=== PATIENT | male | born 1935 | race Caucasian/White ===

== ENCOUNTER 2017-08-11 17:10 | Inpatient (IN) | payer OTHER ==
[~2017-08-11] VITALS: Ht 167.6 cm; Wt 80.5 kg
[2017-08-11 18:01] LABS: HEMATOCRIT 29.4 % (38.0-50.0); HEMOGLOBIN 10.4 G/DL (12.5-16.6); MCH 33.1 PG (29.0-34.0); MCHC 35.4 G/DL (30.0-36.0); MCV 93.6 FL (86-99); PLATELET COUNT 123 K/uL (156-360); RBC DIS.WIDTH-CV 14.4 % (11.8-14.6); RBC DIS.WIDTH-SD 49.5 % (39-53); RED BLOOD COUNT 3.14 M/uL (4.00-5.50); WHITE BLOOD COUNT 6.3 K/uL (4.1-10.2)
[2017-08-11 18:12] LABS: CHLORIDE 102 mEq/L (99-109); POTASSIUM 3.3 mEq/L (3.7-5.4); SODIUM 138 mEq/L (136-147)
[2017-08-11 18:13] LABS: GLUCOSE 110 mg/dL (70-99)
[2017-08-11 18:17] LABS: CREATININE 3.6 mg/dL (0.6-1.3); GFR ESTIMATE (CALCULATED) 17 mL/min/ (58.99-99999)
[2017-08-11 18:18] LABS: UREA NITROGEN (BUN) 55 mg/dL (9-23)
[2017-08-11 18:26] LABS: TROP-I INTERPRETATION NEGATIVE; TROPONIN-I 0.03 ng/mL (0.0-0.30)
[2017-08-11] MEDS ORDERED: MI-ACID80 MG PO (19:29)
[2017-08-11] MEDS ORDERED: FLONASE16 G1 BOTH NARES (19:29)
[2017-08-11] MEDS ORDERED: COUMADIN3 MG PO ×2 (19:30)
[2017-08-11] MEDS ORDERED: PROVENTIL,2.5 MG/3 M IH (19:32)
[2017-08-11] MEDS ORDERED: SUPER CALCIUM600 MG PO (19:32)
[2017-08-11] MEDS ORDERED: BUMEX1 MG PO ×2 (19:33→19:34)
[2017-08-11] MEDS ORDERED: VENTOLIN HFA18 GM IH (19:33)
[2017-08-11] MEDS ORDERED: PROSCAR5 MG PO (19:33)
[2017-08-11] MEDS ORDERED: FOLIC ACID1 MG PO (19:34)
[2017-08-11] MEDS ORDERED: FEOSOL325 MG PO (19:34)
[2017-08-11] MEDS ORDERED: ZYRTEC10 M3 PO (19:34)
[2017-08-11] MEDS ORDERED: COREG25 M1 PO (19:34)
[2017-08-11] MEDS ORDERED: PROTONIX40 MG PO (19:35)
[2017-08-11] MEDS ORDERED: FLOMAX0.4 MG PO (19:35)
[2017-08-11] MEDS ORDERED: TYLENOL EXTRA500 MG PO (19:36)
[2017-08-11] MEDS ORDERED: BENGAY GREASELE57 GM TP (19:36)
[2017-08-11] MEDS ORDERED: ARTIFICIAL TEAR1510 BOTH EYES (19:37)
[2017-08-11 20:22] LABS: INTER. NORMALIZED RATIO 3.9
[2017-08-11 20:24] LABS: PTT 47.3 SEC (25-37)
[2017-08-11 22:41] LABS: APPEARANCE CLEAR ((CLEAR)); BILIRUBIN NEGATIVE; BLOOD NEGATIVE; COLOR YELLOW ((YELLOW)); GLUCOSE (STRIP) NEGATIVE; KETONES NEGATIVE; LEUKOCYTES NEGATIVE; NITRITE NEGATIVE; PROTEIN (STRIP) NEGATIVE; SPECIFIC GRAVITY 1.011 (1.000-1.030); UCUL ADDED? NO; UROBILINOGEN 0.2 MG/DL (0.2-1.0)
[2017-08-11 22:45] VITALS: BP 142/71
[2017-08-11 23:12] LABS: UR CREATININE CONCENTRATION 80.8 MG/DL
[2017-08-11 23:18] LABS: CREATININE > 25.0 MG/DL (0.6-1.3)
[2017-08-12 01:19] LABS: CHLORIDE 103 mEq/L (99-109); POTASSIUM 3.1 mEq/L (3.7-5.4); SODIUM 138 mEq/L (136-147)
[2017-08-12 01:21] LABS: GLUCOSE 117 mg/dL (70-99)
[2017-08-12 01:25] LABS: GFR ESTIMATE (CALCULATED) 18 mL/min/ (58.99-99999)
[2017-08-12 01:26] LABS: CREATININE 3.5 mg/dL (0.6-1.3); UREA NITROGEN (BUN) 55 mg/dL (9-23)
[2017-08-12 03:55] VITALS: BP 130/81
[2017-08-12 06:00] LABS: HEMATOCRIT 28.3 % (38.0-50.0); HEMOGLOBIN 9.6 G/DL (12.5-16.6); MCH 32.1 PG (29.0-34.0); MCHC 33.9 G/DL (30.0-36.0); MCV 94.6 FL (86-99); PLATELET COUNT 115 K/uL (156-360); RBC DIS.WIDTH-CV 14.5 % (11.8-14.6); RBC DIS.WIDTH-SD 50.3 % (39-53); RED BLOOD COUNT 2.99 M/uL (4.00-5.50); WHITE BLOOD COUNT 4.6 K/uL (4.1-10.2)
[2017-08-12 06:25] LABS: CHLORIDE 103 MEQ/L (99-109); CREATININE 3.5 MG/DL (0.6-1.3); GFR ESTIMATE (CALCULATED) 18 mL/min/ (58.99-99999); GLUCOSE 90 mg/dL (70-99); MAGNESIUM 1.6 mg/dl (1.3-2.7); PHOSPHORUS 3.4 mg/dL (2.5-4.9); POTASSIUM 2.9 MEQ/L (3.7-5.4); SODIUM 139 MEQ/L (136-147); UREA NITROGEN (BUN) 56 mg/dL (9-23)
[2017-08-12 08:35] LABS: INTACT PARATHYROID HORMONE 112 pg/mL (10-69)
[2017-08-12 08:59] VITALS: BP 132/65
[2017-08-12 12:14] LABS: CREATININE 3.3 MG/DL (0.6-1.3)
[2017-08-12 12:46] VITALS: BP 138/71
[2017-08-12 15:37] LABS: INTER. NORMALIZED RATIO 4.2
[2017-08-12 16:48] VITALS: BP 140/92
[2017-08-12 19:12] VITALS: BP 138/76
[2017-08-13 00:50] VITALS: BP 128/74
[2017-08-13 03:29] VITALS: BP 121/76
[2017-08-13 06:22] LABS: HEMOGLOBIN 9.5 G/DL (12.5-16.6); MCH 32.1 PG (29.0-34.0); MCHC 33.9 G/DL (30.0-36.0); MCV 94.6 FL (86-99); PLATELET COUNT 112 K/uL (156-360); RBC DIS.WIDTH-CV 14.6 % (11.8-14.6); RBC DIS.WIDTH-SD 50.5 % (39-53); RED BLOOD COUNT 2.96 M/uL (4.00-5.50); WHITE BLOOD COUNT 4.6 K/uL (4.1-10.2)
[2017-08-13 06:30] LABS: INTER. NORMALIZED RATIO 3.9
[2017-08-13 06:50] LABS: CHLORIDE 106 MEQ/L (99-109); CREATININE 3.4 MG/DL (0.6-1.3); GFR ESTIMATE (CALCULATED) 18 mL/min/ (58.99-99999); GLUCOSE 124 mg/dL (70-99); MAGNESIUM 1.7 mg/dl (1.3-2.7); POTASSIUM 3.4 MEQ/L (3.7-5.4); SODIUM 139 MEQ/L (136-147); UREA NITROGEN (BUN) 53 mg/dL (9-23)
[2017-08-13 07:43] VITALS: BP 137/67
[2017-08-13 11:47] VITALS: BP 146/70
[2017-08-13 15:50] VITALS: BP 139/78
[2017-08-13 19:48] LABS: UR CREATININE CONCENTRATION 61.2 MG/DL
[2017-08-13 20:21] VITALS: BP 138/66
[2017-08-14 00:38] VITALS: BP 161/83
[2017-08-14 04:47] VITALS: BP 140/78
[2017-08-14 05:43] LABS: BASOPHIL COUNT 0.1 K/uL (0-0.1); EOSINOPHIL (%) 3.9 % (0-5); EOSINOPHIL COUNT 0.2 K/uL (0-0.3); HEMATOCRIT 29.1 % (38.0-50.0); HEMOGLOBIN 9.9 G/DL (12.5-16.6); IMMATURE GRANULOCYTE (%) 0.4 % (0.0-0.7); LYMPHOCYTE COUNT 0.7 K/uL (1.0-2.8); MCH 32.2 PG (29.0-34.0); MCV 94.8 FL (86-99); MONOCYTE (%) 13.2 % (3-12); MONOCYTE COUNT 0.7 K/uL (0-0.8); NEUTROPHIL (%) 67.5 % (45-76); NEUTROPHIL COUNT 3.3 K/uL (1.8-6.4); PLATELET COUNT 118 K/uL (156-360); RBC DIS.WIDTH-CV 14.5 % (11.8-14.6); RBC DIS.WIDTH-SD 49.8 % (39-53); RED BLOOD COUNT 3.07 M/uL (4.00-5.50); WHITE BLOOD COUNT 4.9 K/uL (4.1-10.2)
[2017-08-14 06:08] LABS: CHLORIDE 104 MEQ/L (99-109); CREATININE 3.2 MG/DL (0.6-1.3); GFR ESTIMATE (CALCULATED) 20 mL/min/ (58.99-99999); GLUCOSE 107 mg/dL (70-99); POTASSIUM 3.5 MEQ/L (3.7-5.4); SODIUM 138 MEQ/L (136-147); UREA NITROGEN (BUN) 51 mg/dL (9-23)
[2017-08-14 07:49] VITALS: BP 165/74
[2017-08-14 12:09] VITALS: BP 133/80
[2017-08-14 17:11] VITALS: BP 145/83
[2017-08-14 19:44] VITALS: BP 127/63
[2017-08-15 00:11] VITALS: BP 156/86
[2017-08-15 04:28] VITALS: BP 157/76
[2017-08-15 06:00] LABS: INTER. NORMALIZED RATIO 2.6
[2017-08-15 06:01] LABS: BASOPHIL (%) 0.7 % (0-1); EOSINOPHIL (%) 2.1 % (0-5); EOSINOPHIL COUNT 0.1 K/uL (0-0.3); HEMATOCRIT 28.3 % (38.0-50.0); HEMOGLOBIN 9.8 G/DL (12.5-16.6); IMMATURE GRANULOCYTE (%) 0.3 % (0.0-0.7); LYMPHOCYTE (%) 10.5 % (15-42); LYMPHOCYTE COUNT 0.6 K/uL (1.0-2.8); MCH 32.7 PG (29.0-34.0); MCHC 34.6 G/DL (30.0-36.0); MCV 94.3 FL (86-99); MONOCYTE (%) 14.5 % (3-12); MONOCYTE COUNT 0.9 K/uL (0-0.8); NEUTROPHIL (%) 71.9 % (45-76); NEUTROPHIL COUNT 4.4 K/uL (1.8-6.4); PLATELET COUNT 120 K/uL (156-360); RBC DIS.WIDTH-CV 14.6 % (11.8-14.6); RBC DIS.WIDTH-SD 50.6 % (39-53); WHITE BLOOD COUNT 6.1 K/uL (4.1-10.2)
[2017-08-15 06:34] LABS: CHLORIDE 105 MEQ/L (99-109); CREATININE 3.3 MG/DL (0.6-1.3); GFR ESTIMATE (CALCULATED) 19 mL/min/ (58.99-99999); GLUCOSE 109 mg/dL (70-99); POTASSIUM 3.7 MEQ/L (3.7-5.4); SODIUM 140 MEQ/L (136-147); UREA NITROGEN (BUN) 51 mg/dL (9-23)
[2017-08-15 07:55] VITALS: BP 156/73
[2017-08-15 13:55] VITALS: BP 132/80
[2017-08-15 15:43] VITALS: BP 128/82
[2017-08-15 20:47] VITALS: BP 120/75
[2017-08-16] VITALS (9 sets, daily range): BP systolic 116–169; BP diastolic 7–90
[2017-08-16 06:09] LABS: BASOPHIL (%) 0.5 % (0-1); EOSINOPHIL (%) 3.2 % (0-5); EOSINOPHIL COUNT 0.2 K/uL (0-0.3); HEMATOCRIT 30.1 % (38.0-50.0); HEMOGLOBIN 10.2 G/DL (12.5-16.6); IMMATURE GRANULOCYTE (%) 0.5 % (0.0-0.7); LYMPHOCYTE (%) 11.2 % (15-42); LYMPHOCYTE COUNT 0.7 K/uL (1.0-2.8); MCH 31.9 PG (29.0-34.0); MCHC 33.9 G/DL (30.0-36.0); MCV 94.1 FL (86-99); MONOCYTE (%) 13.6 % (3-12); MONOCYTE COUNT 0.9 K/uL (0-0.8); NEUTROPHIL COUNT 4.5 K/uL (1.8-6.4); PLATELET COUNT 126 K/uL (156-360); RBC DIS.WIDTH-CV 14.2 % (11.8-14.6); RBC DIS.WIDTH-SD 49.6 % (39-53); WHITE BLOOD COUNT 6.3 K/uL (4.1-10.2)
[2017-08-16 06:18] LABS: INTER. NORMALIZED RATIO 2.6
[2017-08-16 06:32] LABS: CHLORIDE 105 MEQ/L (99-109); CREATININE 3.4 MG/DL (0.6-1.3); GFR ESTIMATE (CALCULATED) 18 mL/min/ (58.99-99999); GLUCOSE 100 mg/dL (70-99); MAGNESIUM 1.6 mg/dl (1.3-2.7); POTASSIUM 3.7 MEQ/L (3.7-5.4); SODIUM 140 MEQ/L (136-147); UREA NITROGEN (BUN) 58 mg/dL (9-23)
[2017-08-16 17:10] LABS: URIC ACID 12.3 mg/dL (3.1-9.2)
[2017-08-17 03:56] VITALS: BP 149/71
[2017-08-17 06:00] LABS: INTER. NORMALIZED RATIO 2.2
[2017-08-17 07:56] VITALS: BP 147/79
[2017-08-17 12:15] VITALS: BP 140/74
[2017-08-17 15:46] VITALS: BP 145/69
[2017-08-17 19:39] VITALS: BP 134/73
[2017-08-18] VITALS: BP 153/72
[2017-08-18 06:12] LABS: BASOPHIL (%) 0.8 % (0-1); EOSINOPHIL (%) 5.1 % (0-5); EOSINOPHIL COUNT 0.3 K/uL (0-0.3); HEMATOCRIT 28.7 % (38.0-50.0); HEMOGLOBIN 9.7 G/DL (12.5-16.6); IMMATURE GRANULOCYTE (%) 0.2 % (0.0-0.7); LYMPHOCYTE (%) 16.2 % (15-42); LYMPHOCYTE COUNT 0.8 K/uL (1.0-2.8); MCH 31.9 PG (29.0-34.0); MCHC 33.8 G/DL (30.0-36.0); MCV 94.4 FL (86-99); MONOCYTE (%) 14.9 % (3-12); MONOCYTE COUNT 0.8 K/uL (0-0.8); NEUTROPHIL (%) 62.8 % (45-76); NEUTROPHIL COUNT 3.2 K/uL (1.8-6.4); PLATELET COUNT 139 K/uL (156-360); RBC DIS.WIDTH-CV 14.3 % (11.8-14.6); RBC DIS.WIDTH-SD 48.8 % (39-53); RED BLOOD COUNT 3.04 M/uL (4.00-5.50); WHITE BLOOD COUNT 5.1 K/uL (4.1-10.2)
[2017-08-18 06:55] LABS: CHLORIDE 107 MEQ/L (99-109); CREATININE 3.5 MG/DL (0.6-1.3); GFR ESTIMATE (CALCULATED) 18 mL/min/ (58.99-99999); GLUCOSE 104 mg/dL (70-99); POTASSIUM 3.9 MEQ/L (3.7-5.4); SODIUM 147 MEQ/L (136-147); UREA NITROGEN (BUN) 61 mg/dL (9-23)
[2017-08-18 07:08] LABS: INTER. NORMALIZED RATIO 2.1
[2017-08-18 08:00] VITALS: BP 144/71
[2017-08-18 12:02] VITALS: BP 134/71
[2017-08-18 15:53] VITALS: BP 129/78
[2017-08-18 19:45] VITALS: BP 132/68
[2017-08-19] VITALS: BP 131/71
[2017-08-19 03:59] VITALS: BP 134/81
[2017-08-19 05:18] LABS: INTER. NORMALIZED RATIO 2.2
[2017-08-19 05:19] LABS: BASOPHIL (%) 1.1 % (0-1); BASOPHIL COUNT 0.1 K/uL (0-0.1); EOSINOPHIL (%) 6.4 % (0-5); EOSINOPHIL COUNT 0.3 K/uL (0-0.3); HEMATOCRIT 28.9 % (38.0-50.0); HEMOGLOBIN 9.9 G/DL (12.5-16.6); IMMATURE GRANULOCYTE (%) 0.2 % (0.0-0.7); LYMPHOCYTE (%) 18.6 % (15-42); LYMPHOCYTE COUNT 0.8 K/uL (1.0-2.8); MCH 32.5 PG (29.0-34.0); MCHC 34.3 G/DL (30.0-36.0); MCV 94.8 FL (86-99); MONOCYTE (%) 13.9 % (3-12); MONOCYTE COUNT 0.6 K/uL (0-0.8); NEUTROPHIL (%) 59.8 % (45-76); NEUTROPHIL COUNT 2.7 K/uL (1.8-6.4); PLATELET COUNT 136 K/uL (156-360); RBC DIS.WIDTH-CV 14.4 % (11.8-14.6); RBC DIS.WIDTH-SD 49.9 % (39-53); RED BLOOD COUNT 3.05 M/uL (4.00-5.50); WHITE BLOOD COUNT 4.5 K/uL (4.1-10.2)
[2017-08-19 06:21] LABS: CHLORIDE 105 MEQ/L (99-109); CREATININE 3.6 MG/DL (0.6-1.3); GFR ESTIMATE (CALCULATED) 17 mL/min/ (58.99-99999); GLUCOSE 88 mg/dL (70-99); POTASSIUM 4.1 MEQ/L (3.7-5.4); SODIUM 146 MEQ/L (136-147); UREA NITROGEN (BUN) 60 mg/dL (9-23)
[2017-08-19 07:17] VITALS: BP 165/76
[2017-08-19 11:41] VITALS: BP 138/63
[2017-08-19 16:25] VITALS: BP 134/74
[2017-08-19 20:09] VITALS: BP 136/66
[2017-08-20 00:04] VITALS: BP 155/73
[2017-08-20 03:31] VITALS: BP 165/75
[2017-08-20 07:16] LABS: INTER. NORMALIZED RATIO 2.4
[2017-08-20 08:12] VITALS: BP 148/76
[2017-08-20 10:57] VITALS: BP 132/67
[2017-08-20] MEDS ORDERED: SPIRONOLACTONE25 MG PO (11:48)
[2017-08-20] MEDS ORDERED: K-DUR20 MEQ PO (11:49)
[2017-08-20] MEDS ORDERED: BUMETANIDE1 MG PO (11:50)
[2017-08-20] MEDS ORDERED: Salonpas 4% Patch TD (11:51)
[2017-08-20] MEDS ORDERED: Tums,OsCal PO (11:51)
[2017-08-20] MEDS ORDERED: Remove Lidoderm Patc TD (11:51)
== END 2017-08-20 14:14 | DRG 682 ==
LOC: EME 17:10 → EDOF 20:28 → 5SOUTH 20:28 → ENRESERV 20:31 → 5SOUTH 22:32
PROVIDERS: Hospitalist; Internal Medicine; Physician Assistant; Physician Assistant Medical
PROC: 5A09357 Assistance with Respiratory Ventilation, Less than 24 Consecutive Hours, Continuous Positive Airway Pressure (ICD-10-PCS; principal; 2017-08-16)
DX: N17.9 Acute kidney failure, unspecified (principal); I13.2 Hypertensive heart and chronic kidney disease with heart failure and with stage 5 chronic kidney disease, or end stage renal disease; I50.43 Acute on chronic combined systolic (congestive) and diastolic (congestive) heart failure; Z79.01 Long term (current) use of anticoagulants; Z95.1 Presence of aortocoronary bypass graft; I25.10 Atherosclerotic heart disease of native coronary artery without angina pectoris; I48.2 Chronic atrial fibrillation; I25.5 Ischemic cardiomyopathy; E87.6 Hypokalemia; D63.1 Anemia in chronic kidney disease; R79.1 Abnormal coagulation profile; N18.5 Chronic kidney disease, stage 5; J45.909 Unspecified asthma, uncomplicated; I27.20 Pulmonary hypertension, unspecified; I35.0 Nonrheumatic aortic (valve) stenosis; M79.671 Pain in right foot; H91.90 Unspecified hearing loss, unspecified ear; Z66 Do not resuscitate
CPT/HCPCS: 71045; 71046; 73630; 76770; 78582; 80048; 80048 91; 80069; 81003; 81050; 82272; 82330; 82575; 82948; 83735; 83880; 83970; 84300; 84484; 84550; 85025; 85027; 85610; 85651; 85730; 93005; 93306; 93970; 94640; 94640 76; 94660; 97530 GO; 97530 GP; 99202; 99281; 99285; A9540; A9541; A9567

== ENCOUNTER 2017-08-23 00:25 | Inpatient (IN) | payer OTHER ==
[~2017-08-23] VITALS: Ht 160 cm; Wt 89.1 kg
[~2017-08-23 00:25] MED LIST: ARTIFICIAL TEAR1510 BOTH EYES; BENGAY GREASELE57 GM TP; BUMETANIDE1 MG PO; BUMEX1 MG PO; COREG25 M1 PO; COUMADIN3 MG PO; FEOSOL325 MG PO; FLOMAX0.4 MG PO; FLONASE16 G1 BOTH NARES; FOLIC ACID1 MG PO; K-DUR20 MEQ PO; MI-ACID80 MG PO; PROSCAR5 MG PO; PROTONIX40 MG PO; PROVENTIL,2.5 MG/3 M IH; Remove Lidoderm Patc TD; SPIRONOLACTONE25 MG PO; SUPER CALCIUM600 MG PO; Salonpas 4% Patch TD; TYLENOL EXTRA500 MG PO; Tums,OsCal PO; VENTOLIN HFA18 GM IH; ZYRTEC10 M3 PO
[2017-08-23 01:48] LABS: BASOPHIL (%) 0.8 % (0-1); BASOPHIL COUNT 0.1 K/uL (0-0.1); EOSINOPHIL (%) 3.6 % (0-5); EOSINOPHIL COUNT 0.2 K/uL (0-0.3); IMMATURE GRANULOCYTE (%) 0.3 % (0.0-0.7); INTER. NORMALIZED RATIO 2.4; LYMPHOCYTE (%) 14.5 % (15-42); LYMPHOCYTE COUNT 0.9 K/uL (1.0-2.8); MCH 32.4 PG (29.0-34.0); MCHC 34.6 G/DL (30.0-36.0); MCV 93.8 FL (86-99); MONOCYTE (%) 9.9 % (3-12); MONOCYTE COUNT 0.6 K/uL (0-0.8); NEUTROPHIL (%) 70.9 % (45-76); NEUTROPHIL COUNT 4.5 K/uL (1.8-6.4); PLATELET COUNT 158 K/uL (156-360); RBC DIS.WIDTH-CV 13.9 % (11.8-14.6); RBC DIS.WIDTH-SD 47.8 % (39-53); WHITE BLOOD COUNT 6.4 K/uL (4.1-10.2)
[2017-08-23 01:50] LABS: HEMOGLOBIN 12.1 G/DL (12.5-16.6); RED BLOOD COUNT 3.73 M/uL (4.00-5.50)
[2017-08-23 01:51] LABS: PTT 41.1 SEC (25-37)
[2017-08-23 01:55] LABS: ALBUMIN 3.5 g/dL (3.2-4.8); CHLORIDE 102 mEq/L (99-109); POTASSIUM 4.8 mEq/L (3.7-5.4); SODIUM 140 mEq/L (136-147)
[2017-08-23 01:56] LABS: MAGNESIUM 1.9 mg/dL (1.3-2.7)
[2017-08-23 01:58] LABS: GLUCOSE 121 mg/dL (70-99); TOTAL PROTEIN 6.8 g/dL (6.4-8.3)
[2017-08-23 02:00] LABS: TOTAL BILIRUBIN 1.2 mg/dL (0.0-1.0)
[2017-08-23 02:01] LABS: ALKALINE PHOSPHATASE 181 IU/L (3-129)
[2017-08-23 02:02] LABS: CREATININE 4.2 mg/dL (0.6-1.3); GFR ESTIMATE (CALCULATED) 14 mL/min/ (58.99-99999)
[2017-08-23 02:03] LABS: AST (GOT) 28 IU/L (2-34); UREA NITROGEN (BUN) 69 mg/dL (9-23)
[2017-08-23 02:05] LABS: ALT (GPT) 14 IU/L (3-49); LIPASE 57 U/L (1.0-51.0)
[2017-08-23 02:07] LABS: TROP-I INTERPRETATION NEGATIVE; TROPONIN-I 0.02 ng/mL (0.0-0.30)
[2017-08-23 06:36] VITALS: BP 166/89
[2017-08-23 09:15] LABS: HEMATOCRIT 32.3 % (38.0-50.0); HEMOGLOBIN 10.9 G/DL (12.5-16.6); MCHC 33.7 G/DL (30.0-36.0); MCV 94.7 FL (86-99); PLATELET COUNT 170 K/uL (156-360); RBC DIS.WIDTH-CV 13.8 % (11.8-14.6); RBC DIS.WIDTH-SD 47.9 % (39-53); RED BLOOD COUNT 3.41 M/uL (4.00-5.50); WHITE BLOOD COUNT 7.2 K/uL (4.1-10.2)
[2017-08-23 09:55] LABS: CHLORIDE 102 MEQ/L (99-109); CREATININE 3.9 MG/DL (0.6-1.3); GFR ESTIMATE (CALCULATED) 16 mL/min/ (58.99-99999); GLUCOSE 110 mg/dL (70-99); POTASSIUM 4.5 MEQ/L (3.7-5.4); SODIUM 143 MEQ/L (136-147); UREA NITROGEN (BUN) 69 mg/dL (9-23)
[2017-08-23 11:17] LABS: INTER. NORMALIZED RATIO 2.6
[2017-08-23 14:49] LABS: HDL CHOLESTEROL 32 MG/DL (Desirable>=40); LDL CHOLESTEROL 57 mg/dL (Desirable<100); NON-HDL CHOLESTEROL 70 mg/dL (Desirable<160); TOTAL CHOLESTEROL 102 mg/dL (Desirable<200); TRIGLYCERIDES 66 MG/DL (Normal: <150)
[2017-08-23 14:55] LABS: TROP-I INTERPRETATION NEGATIVE; TROPONIN-I 0.02 ng/mL (0.0-0.30)
[2017-08-23 15:04] VITALS: BP 145/67
[2017-08-23 23:33] VITALS: BP 139/69
[2017-08-24 06:21] LABS: BASOPHIL COUNT 0.1 K/uL (0-0.1); EOSINOPHIL (%) 2.4 % (0-5); EOSINOPHIL COUNT 0.2 K/uL (0-0.3); HEMATOCRIT 34.6 % (38.0-50.0); HEMOGLOBIN 11.4 G/DL (12.5-16.6); IMMATURE GRANULOCYTE (%) 0.4 % (0.0-0.7); LYMPHOCYTE (%) 12.3 % (15-42); LYMPHOCYTE COUNT 0.9 K/uL (1.0-2.8); MCH 31.9 PG (29.0-34.0); MCHC 32.9 G/DL (30.0-36.0); MCV 96.9 FL (86-99); MONOCYTE (%) 10.9 % (3-12); MONOCYTE COUNT 0.8 K/uL (0-0.8); NEUTROPHIL COUNT 5.1 K/uL (1.8-6.4); PLATELET COUNT 182 K/uL (156-360); RBC DIS.WIDTH-SD 49.7 % (39-53); RED BLOOD COUNT 3.57 M/uL (4.00-5.50)
[2017-08-24 06:23] LABS: INTER. NORMALIZED RATIO 2.5
[2017-08-24 06:45] LABS: CHLORIDE 105 MEQ/L (99-109); GFR ESTIMATE (CALCULATED) 15 mL/min/ (58.99-99999); GLUCOSE 79 mg/dL (70-99); POTASSIUM 4.9 MEQ/L (3.7-5.4); SODIUM 148 MEQ/L (136-147); UREA NITROGEN (BUN) 67 mg/dL (9-23)
[2017-08-24 07:35] VITALS: BP 156/89
[2017-08-24 11:59] LABS: APPEARANCE CLEAR ((CLEAR)); BILIRUBIN NEGATIVE; BLOOD SMALL; COLOR YELLOW ((YELLOW)); GLUCOSE (STRIP) NEGATIVE; KETONES NEGATIVE; LEUKOCYTES NEGATIVE; NITRITE NEGATIVE; PROTEIN (STRIP) 30; SPECIFIC GRAVITY 1.013 (1.000-1.030)
[2017-08-24] MEDS ORDERED: TUMS500 MG PO (12:15)
[2017-08-24] MEDS ORDERED: SALONPAS-HOT1 EACH TD (12:18)
[2017-08-24 12:20] LABS: BACTERIA NONE SEEN /HPF; EPITHELIAL CELLS NONE SEEN /HPF; MUCUS NONE SEEN /LPF; RED BLOOD CELLS 0-5 /HPF (0-5); UCUL ADDED? NO; WHITE BLOOD CELLS 0-5 /HPF (0-5)
[2017-08-24] MEDS ORDERED: SALONPAS GEL-P1 EAC1 TD (12:20)
[2017-08-24] MEDS ORDERED: PRILOSEC20 MG PO (12:24)
[2017-08-24] MEDS ORDERED: LIQUITEARS15 ML BOTH EYES (12:26)
[2017-08-24] MEDS ORDERED: MILK OF MAGN PO (12:29)
[2017-08-24] MEDS ORDERED: CHLORASEPTIC177 ML MM (12:29)
[2017-08-24] MEDS ORDERED: BISAC-EVAC10 MG PR (12:30)
[2017-08-24] MEDS ORDERED: FLEET ENEMA-AD118 ML PR (12:31)
[2017-08-24 12:34] LABS: HEMOGLOBIN A1c (GLYCOHEMOGLOB) 5.7 % (Below 5.7)
[2017-08-24 20:10] VITALS: BP 133/71
[2017-08-25 01:10] VITALS: BP 119/66
[2017-08-25 06:37] LABS: INTER. NORMALIZED RATIO 3.4
[2017-08-25 07:09] VITALS: BP 147/67
[2017-08-25 13:20] LABS: CHLORIDE 106 MEQ/L (99-109); CREATININE 4.1 MG/DL (0.6-1.3); GFR ESTIMATE (CALCULATED) 15 mL/min/ (58.99-99999); SODIUM 145 MEQ/L (136-147); UREA NITROGEN (BUN) 61 mg/dL (9-23)
[2017-08-25 13:36] LABS: GLUCOSE 145 mg/dL (70-99); POTASSIUM 3.9 MEQ/L (3.7-5.4)
[2017-08-25 15:07] VITALS: BP 137/60
[2017-08-25 21:19] VITALS: BP 126/63
[2017-08-25 23:54] VITALS: BP 125/63
[2017-08-26 05:55] LABS: INTER. NORMALIZED RATIO 3.9
[2017-08-26 07:59] VITALS: BP 119/58
[2017-08-26 16:24] VITALS: BP 128/64
[2017-08-27 05:59] LABS: CHLORIDE 103 MEQ/L (99-109); CREATININE 3.9 MG/DL (0.6-1.3); GFR ESTIMATE (CALCULATED) 16 mL/min/ (58.99-99999); POTASSIUM 4.1 MEQ/L (3.7-5.4); SODIUM 138 MEQ/L (136-147); UREA NITROGEN (BUN) 60 mg/dL (9-23)
[2017-08-27 06:02] LABS: GLUCOSE 102 mg/dL (70-99)
[2017-08-27 06:31] LABS: INTER. NORMALIZED RATIO 3.7
[2017-08-27 07:38] VITALS: BP 141/83
[2017-08-27] MEDS ORDERED: BUMETANIDE1 MG PO (11:34)
== END 2017-08-27 15:40 | DRG 683 ==
LOC: EME → EDBD 00:25 → 5SOUTH 03:53 → EDOF 03:53 → ENRESERV 03:55 → 3EAST 05:21 → ENRESERV 05:47 → 5SOUTH 05:54
PROVIDERS: Emergency Medicine; Hospitalist; Internal Medicine; Nurse Practitioner Family; Physician Assistant; Physician Assistant Medical; Student in an Organized Health Care Education/Training Program
DX: N17.9 Acute kidney failure, unspecified (principal); E86.0 Dehydration; E87.0 Hyperosmolality and hypernatremia; E16.2 Hypoglycemia, unspecified; F03.90 Unspecified dementia, unspecified severity, without behavioral disturbance, psychotic disturbance, mood disturbance, and anxiety; F05 Delirium due to known physiological condition; T40.605A Adverse effect of unspecified narcotics, initial encounter; I13.2 Hypertensive heart and chronic kidney disease with heart failure and with stage 5 chronic kidney disease, or end stage renal disease; I50.42 Chronic combined systolic (congestive) and diastolic (congestive) heart failure; N18.4 Chronic kidney disease, stage 4 (severe); D63.1 Anemia in chronic kidney disease; J45.909 Unspecified asthma, uncomplicated; I48.2 Chronic atrial fibrillation; N40.0 Benign prostatic hyperplasia without lower urinary tract symptoms; E78.5 Hyperlipidemia, unspecified; I25.10 Atherosclerotic heart disease of native coronary artery without angina pectoris; I25.5 Ischemic cardiomyopathy; I27.20 Pulmonary hypertension, unspecified; I35.0 Nonrheumatic aortic (valve) stenosis; G47.33 Obstructive sleep apnea (adult) (pediatric); W06.XXXA Fall from bed, initial encounter; S42.212A Unspecified displaced fracture of surgical neck of left humerus, initial encounter for closed fracture; Y92.122 Bedroom in nursing home as the place of occurrence of the external cause; Z66 Do not resuscitate; I25.2 Old myocardial infarction; Z79.01 Long term (current) use of anticoagulants; Z95.1 Presence of aortocoronary bypass graft; Z87.891 Personal history of nicotine dependence
CPT/HCPCS: 70450; 70551; 71045; 71046; 72125; 73030; 74018; 76770; 80048; 80048 91; 80053; 80061; 81003; 82948; 83036; 83605; 83690; 83735; 83880; 84484; 85025; 85027; 85610; 85730; 87040; 93005; 93880; 94799; 99202; 99281; 99285; G0378; J2060; J2270; J2405; J3010; J7030; J7040

== ENCOUNTER 2017-09-15 11:17 | Inpatient (IN) | payer OTHER ==
[~2017-09-15] VITALS: Ht 167.6 cm; Wt 86.8 kg
[~2017-09-15 11:17] MED LIST changes: +BISAC-EVAC10 MG PR; +CHLORASEPTIC177 ML MM; +FLEET ENEMA-AD118 ML PR; +LIQUITEARS15 ML BOTH EYES; +MILK OF MAGN PO; +PRILOSEC20 MG PO; +SALONPAS GEL-P1 EAC1 TD; +SALONPAS-HOT1 EACH TD; +TUMS500 MG PO
[2017-09-15 11:53] LABS: BASOPHIL (%) 0.8 % (0-1); EOSINOPHIL (%) 5.9 % (0-5); EOSINOPHIL COUNT 0.3 K/uL (0-0.3); HEMATOCRIT 27.6 % (38.0-50.0); HEMOGLOBIN 9.6 G/DL (12.5-16.6); LYMPHOCYTE (%) 19.1 % (15-42); LYMPHOCYTE COUNT 0.9 K/uL (1.0-2.8); MCH 32.4 PG (29.0-34.0); MCHC 34.8 G/DL (30.0-36.0); MCV 93.2 FL (86-99); MONOCYTE (%) 12.1 % (3-12); MONOCYTE COUNT 0.6 K/uL (0-0.8); NEUTROPHIL (%) 62.1 % (45-76); NEUTROPHIL COUNT 2.9 K/uL (1.8-6.4); RBC DIS.WIDTH-CV 15.2 % (11.8-14.6); RED BLOOD COUNT 2.96 M/uL (4.00-5.50); WHITE BLOOD COUNT 4.7 K/uL (4.1-10.2)
[2017-09-15 12:02] LABS: CHLORIDE 109 mEq/L (99-109); SODIUM 141 mEq/L (136-147)
[2017-09-15 12:05] LABS: GLUCOSE 116 mg/dL (70-99)
[2017-09-15 12:08] LABS: CREATININE 3.9 mg/dL (0.6-1.3); GFR ESTIMATE (CALCULATED) 16 mL/min/ (58.99-99999)
[2017-09-15 12:09] LABS: UREA NITROGEN (BUN) 71 mg/dL (9-23)
[2017-09-15 12:12] LABS: TROP-I INTERPRETATION NEGATIVE; TROPONIN-I 0.02 ng/mL (0.0-0.30)
[2017-09-15 12:39] LABS: PLAT.SUFFICIENCY DECREASED; PLATELET COUNT 123 K/uL (156-360)
[2017-09-15] MEDS ORDERED: TYLENOL EXTRA500 MG PO (13:04)
[2017-09-15] MEDS ORDERED: BUMEX2 MG PO (13:06)
[2017-09-15] MEDS ORDERED: COUMADIN3 MG PO (13:11)
[2017-09-15 13:21] LABS: INTER. NORMALIZED RATIO 1.9
[2017-09-15 13:45] LABS: DEVICE NC; O2 FLOW 3 L/MIN; SITE RR; pH 7.29 (7.35-7.45)
[2017-09-15 13:46] LABS: BASE EXCESS -5.5 mEq/L (-3 to +3); BICARBONATE 20.7 mEq/L (22-26); CARBOXY HGB 1.4 % (0-5); METHEMOGLOBIN 0.7 % (0-1.5); PCO2 43 mm Hg (35-45); PO2 134 mm Hg (80-100)
[2017-09-15 17:33] VITALS: BP 139/85
[2017-09-15 19:39] VITALS: BP 136/81
[2017-09-15 20:07] LABS: TYPE OF FLUID PLEURAL
[2017-09-15 21:06] LABS: BODY FLUID GLUCOSE 119 MG/DL; BODY FLUID LDH 78 IU/L; BODY FLUID PROTEIN < 3.0 G/DL
[2017-09-15 21:57] LABS: APPEARANCE CLEAR-YELLOW; BODY FLUID EOSINOPHILS 1 % (0-25); BODY FLUID RBC'S < 1000 /MM^3 (0-100); BODY FLUID WBC'S 158 /MM^3 (0-500); MONONUCLEAR WBC'S 96 %; POLYNUCLEAR WBC'S 3 % (0-25)
[2017-09-15 22:18] VITALS: BP 173/83
[2017-09-16 03:44] VITALS: BP 160/69
[2017-09-16 05:24] LABS: HEMATOCRIT 27.9 % (38.0-50.0); HEMOGLOBIN 9.4 G/DL (12.5-16.6); MCH 31.3 PG (29.0-34.0); MCHC 33.7 G/DL (30.0-36.0); PLATELET COUNT 118 K/uL (156-360); RBC DIS.WIDTH-CV 15.1 % (11.8-14.6); RBC DIS.WIDTH-SD 51.1 % (39-53); WHITE BLOOD COUNT 4.7 K/uL (4.1-10.2)
[2017-09-16 05:31] LABS: INTER. NORMALIZED RATIO 1.8
[2017-09-16 05:43] LABS: CHLORIDE 109 MEQ/L (99-109); CREATININE 3.7 MG/DL (0.6-1.3); GFR ESTIMATE (CALCULATED) 17 mL/min/ (58.99-99999); GLUCOSE 150 mg/dL (70-99); POTASSIUM 4.1 MEQ/L (3.7-5.4); SODIUM 140 MEQ/L (136-147); UREA NITROGEN (BUN) 71 mg/dL (9-23)
[2017-09-16 06:14] LABS: ABS NEUTROPHIL COUNT 4.6; ANISOCYTOSIS 3+; EOSINOPHIL ABS CT 0; LYMPHOCYTES 2.8 % (15.0-45.0); MACROCYTES 3+; NUCLEATED RBC'S 0.9; PLAT.SUFFICIENCY DECREASED; POIKILOCYTOSIS 2+; SEG.NEUTROPHILS 97.2 % (46.0-76.0)
[2017-09-16 07:42] VITALS: BP 124/69
[2017-09-16 08:47] LABS: BASE EXCESS -5.4 mEq/L (-3 to +3); BICARBONATE 18.6 mEq/L (22-26); COMMENTS - BLOOD GASES A+C+; DEVICE RA; PCO2 30 mm Hg (35-45); PO2 84 mm Hg (80-100); SITE RR
[2017-09-16 11:41] VITALS: BP 116/54
[2017-09-16 15:15] VITALS: BP 119/56
[2017-09-16 19:34] VITALS: BP 147/70
[2017-09-16 20:31] LABS: APPEARANCE CLEAR ((CLEAR)); BILIRUBIN NEGATIVE; BLOOD NEGATIVE; COLOR YELLOW ((YELLOW)); GLUCOSE (STRIP) NEGATIVE; KETONES NEGATIVE; LEUKOCYTES NEGATIVE; NITRITE NEGATIVE; PROTEIN (STRIP) NEGATIVE; SPECIFIC GRAVITY 1.013 (1.000-1.030); UCUL ADDED? NO; UROBILINOGEN 0.2 MG/DL (0.2-1.0)
[2017-09-16 22:52] VITALS: BP 136/64
[2017-09-17 03:25] VITALS: BP 159/74
[2017-09-17 06:18] LABS: BASOPHIL (%) 0.1 % (0-1); EOSINOPHIL (%) 0 % (0-5); HEMATOCRIT 25.5 % (38.0-50.0); HEMOGLOBIN 8.8 G/DL (12.5-16.6); IMMATURE GRANULOCYTE (%) 1.2 % (0.0-0.7); LYMPHOCYTE (%) 4.5 % (15-42); LYMPHOCYTE COUNT 0.5 K/uL (1.0-2.8); MCH 31.8 PG (29.0-34.0); MCHC 34.5 G/DL (30.0-36.0); MCV 92.1 FL (86-99); MONOCYTE (%) 0.9 % (3-12); MONOCYTE COUNT 0.1 K/uL (0-0.8); NEUTROPHIL (%) 93.3 % (45-76); NEUTROPHIL COUNT 9.4 K/uL (1.8-6.4); PLATELET COUNT 127 K/uL (156-360); RBC DIS.WIDTH-CV 15.2 % (11.8-14.6); RBC DIS.WIDTH-SD 49.8 % (39-53); RED BLOOD COUNT 2.77 M/uL (4.00-5.50); WHITE BLOOD COUNT 10.1 K/uL (4.1-10.2)
[2017-09-17 06:35] LABS: ALBUMIN 3.1 G/DL (3.2-4.8); ALKALINE PHOSPHATASE 110 IU/L (3-129); ALT (GPT) 10 IU/L (3-49); AST (GOT) 16 IU/L (2-34); CHLORIDE 105 MEQ/L (99-109); CREATININE 4.3 MG/DL (0.6-1.3); GFR ESTIMATE (CALCULATED) 14 mL/min/ (58.99-99999); GLUCOSE 131 mg/dL (70-99); POTASSIUM 4.2 MEQ/L (3.7-5.4); SODIUM 136 MEQ/L (136-147); TOTAL PROTEIN 5.8 G/DL (6.4-8.3); UREA NITROGEN (BUN) 75 mg/dL (9-23)
[2017-09-17 07:45] VITALS: BP 144/70
[2017-09-17 11:06] VITALS: BP 130/65
[2017-09-17 15:16] LABS: BODY FLUID PH 7.8 (())
[2017-09-17 15:24] VITALS: BP 145/65
[2017-09-17 19:00] VITALS: BP 147/79
[2017-09-18 00:53] VITALS: BP 138/74
[2017-09-18 04:38] VITALS: BP 155/87
[2017-09-18 05:46] LABS: BASOPHIL (%) 0 % (0-1); EOSINOPHIL (%) 0 % (0-5); HEMATOCRIT 27.7 % (38.0-50.0); HEMOGLOBIN 9.6 G/DL (12.5-16.6); IMMATURE GRANULOCYTE (%) 0.4 % (0.0-0.7); LYMPHOCYTE (%) 3.5 % (15-42); LYMPHOCYTE COUNT 0.3 K/uL (1.0-2.8); MCHC 34.7 G/DL (30.0-36.0); MCV 92.3 FL (86-99); MONOCYTE (%) 0.7 % (3-12); MONOCYTE COUNT 0.1 K/uL (0-0.8); NEUTROPHIL (%) 95.4 % (45-76); NEUTROPHIL COUNT 8.6 K/uL (1.8-6.4); PLATELET COUNT 126 K/uL (156-360); RBC DIS.WIDTH-CV 15.4 % (11.8-14.6); RBC DIS.WIDTH-SD 51.4 % (39-53)
[2017-09-18 05:48] LABS: INTER. NORMALIZED RATIO 1.9
[2017-09-18 06:08] LABS: ALBUMIN 3.3 G/DL (3.2-4.8); ALKALINE PHOSPHATASE 117 IU/L (3-129); ALT (GPT) 13 IU/L (3-49); AST (GOT) 19 IU/L (2-34); CHLORIDE 102 MEQ/L (99-109); CREATININE 4.3 MG/DL (0.6-1.3); GFR ESTIMATE (CALCULATED) 14 mL/min/ (58.99-99999); GLUCOSE 137 mg/dL (70-99); POTASSIUM 3.9 MEQ/L (3.7-5.4); SODIUM 133 MEQ/L (136-147); TOTAL PROTEIN 6.2 G/DL (6.4-8.3); UREA NITROGEN (BUN) 87 mg/dL (9-23)
[2017-09-18 07:33] VITALS: BP 140/72
[2017-09-18 11:27] VITALS: BP 135/85
[2017-09-18 15:08] VITALS: BP 131/61
[2017-09-18 19:50] VITALS: BP 160/78
[2017-09-19] VITALS (7 sets, daily range): BP systolic 145–163; BP diastolic 75–85
[2017-09-19 05:49] LABS: BASOPHIL (%) 0 % (0-1); EOSINOPHIL (%) 0 % (0-5); HEMATOCRIT 27.3 % (38.0-50.0); HEMOGLOBIN 9.5 G/DL (12.5-16.6); IMMATURE GRANULOCYTE (%) 0.4 % (0.0-0.7); LYMPHOCYTE (%) 3.7 % (15-42); LYMPHOCYTE COUNT 0.3 K/uL (1.0-2.8); MCH 31.9 PG (29.0-34.0); MCHC 34.8 G/DL (30.0-36.0); MCV 91.6 FL (86-99); MONOCYTE (%) 5.2 % (3-12); MONOCYTE COUNT 0.5 K/uL (0-0.8); NEUTROPHIL (%) 90.7 % (45-76); NEUTROPHIL COUNT 8.2 K/uL (1.8-6.4); PLATELET COUNT 116 K/uL (156-360); RBC DIS.WIDTH-CV 15.2 % (11.8-14.6); RBC DIS.WIDTH-SD 50.4 % (39-53); RED BLOOD COUNT 2.98 M/uL (4.00-5.50); WHITE BLOOD COUNT 9.1 K/uL (4.1-10.2)
[2017-09-19 06:05] LABS: CHLORIDE 104 MEQ/L (99-109); CREATININE 4.2 MG/DL (0.6-1.3); GFR ESTIMATE (CALCULATED) 14 mL/min/ (58.99-99999); GLUCOSE 128 mg/dL (70-99); POTASSIUM 3.9 MEQ/L (3.7-5.4); SODIUM 133 MEQ/L (136-147); UREA NITROGEN (BUN) 94 mg/dL (9-23)
[2017-09-19 11:11] LABS: MAGNESIUM 1.6 mg/dl (1.3-2.7)
[2017-09-20 04:00] VITALS: BP 152/81
[2017-09-20 05:41] LABS: BASOPHIL (%) 0 % (0-1); EOSINOPHIL (%) 0 % (0-5); HEMOGLOBIN 9.8 G/DL (12.5-16.6); IMMATURE GRANULOCYTE (%) 0.7 % (0.0-0.7); LYMPHOCYTE COUNT 0.5 K/uL (1.0-2.8); MCH 31.7 PG (29.0-34.0); MCV 90.6 FL (86-99); MONOCYTE COUNT 0.6 K/uL (0-0.8); NEUTROPHIL (%) 87.3 % (45-76); NEUTROPHIL COUNT 7.9 K/uL (1.8-6.4); PLATELET COUNT 123 K/uL (156-360); RBC DIS.WIDTH-CV 15.3 % (11.8-14.6); RED BLOOD COUNT 3.09 M/uL (4.00-5.50); WHITE BLOOD COUNT 9.1 K/uL (4.1-10.2)
[2017-09-20 05:57] LABS: INTER. NORMALIZED RATIO 2.1
[2017-09-20 06:09] LABS: CHLORIDE 102 MEQ/L (99-109); GFR ESTIMATE (CALCULATED) 15 mL/min/ (58.99-99999); GLUCOSE 96 mg/dL (70-99); POTASSIUM 3.4 MEQ/L (3.7-5.4); SODIUM 134 MEQ/L (136-147); UREA NITROGEN (BUN) 97 mg/dL (9-23)
[2017-09-20 08:31] VITALS: BP 163/74
[2017-09-20] MEDS ORDERED: DULERA 200 MCG/13 GM IH (11:13)
[2017-09-20] MEDS ORDERED: PREDNISONE10 MG PO (11:14)
[2017-09-20] MEDS ORDERED: MONTELUKAST SOD10 MG PO (11:14)
[2017-09-20] MEDS ORDERED: SPIRIVA RESPIMAT4 GM IH (11:14)
[2017-09-20 11:19] VITALS: BP 135/75
[2017-09-20 15:54] VITALS: BP 135/68
== END 2017-09-20 17:50 | DRG 187 ==
LOC: EME 11:17 → 4EAST 15:32 → EDOF 15:32 → ENRESERV 15:38 → 4EAST 17:01 → ENPENDDIS 09-20 → 4EAST 09-20 17:50
PROVIDERS: Emergency Medicine; Hospitalist; Internal Medicine
PROC: 0W993ZZ Drainage of Right Pleural Cavity, Percutaneous Approach (ICD-10-PCS; principal; 2017-09-15)
PROC: 5A09357 Assistance with Respiratory Ventilation, Less than 24 Consecutive Hours, Continuous Positive Airway Pressure (ICD-10-PCS; 2017-09-16)
DX: J90 Pleural effusion, not elsewhere classified (principal); J45.901 Unspecified asthma with (acute) exacerbation; I48.2 Chronic atrial fibrillation; I47.2 Ventricular tachycardia; I25.5 Ischemic cardiomyopathy; I13.10 Hypertensive heart and chronic kidney disease without heart failure, with stage 1 through stage 4 chronic kidney disease, or unspecified chronic kidney disease; N18.4 Chronic kidney disease, stage 4 (severe); D63.1 Anemia in chronic kidney disease; S42.302D Unspecified fracture of shaft of humerus, left arm, subsequent encounter for fracture with routine healing; W19.XXXD Unspecified fall, subsequent encounter; E87.2 Acidosis; D69.6 Thrombocytopenia, unspecified; J98.11 Atelectasis; I27.20 Pulmonary hypertension, unspecified; Z66 Do not resuscitate; G47.33 Obstructive sleep apnea (adult) (pediatric); I35.0 Nonrheumatic aortic (valve) stenosis; I25.10 Atherosclerotic heart disease of native coronary artery without angina pectoris; K21.9 Gastro-esophageal reflux disease without esophagitis; E78.5 Hyperlipidemia, unspecified; N40.1 Benign prostatic hyperplasia with lower urinary tract symptoms; R32 Unspecified urinary incontinence; R33.8 Other retention of urine; I25.2 Old myocardial infarction; K59.00 Constipation, unspecified; Z91.15 Patient's noncompliance with renal dialysis; Z95.1 Presence of aortocoronary bypass graft; Z79.01 Long term (current) use of anticoagulants
CPT/HCPCS: 36600; 71045; 71250; 76942; 80048; 80048 91; 80053; 81003; 82945; 82948; 83605; 83615 91; 83735; 83880; 83986 90; 84157; 84484; 85025; 85610; 87040; 87070; 87075; 87116; 87205; 87206; 87641; 88108; 88305; 89051; 93005; 94640; 94660; 94799; 99281; 99285; A6214; J0360; J0456; J0696; J2543; J2920; J2930; J3370; J3475; J7512

== ENCOUNTER 2017-10-12 20:10 | Inpatient (IN) | payer OTHER ==
[~2017-10-12] VITALS: Ht 167.6 cm; Wt 91.7 kg
[~2017-10-12 20:10] MED LIST changes: +BUMEX2 MG PO; +DULERA 200 MCG/13 GM IH; -LIQUITEARS15 ML BOTH EYES; +MONTELUKAST SOD10 MG PO; +PREDNISONE10 MG PO; +REFRESH TEARS15 ML BOTH EYES; +SPIRIVA RESPIMAT4 GM IH
[2017-10-12 21:15] LABS: HEMATOCRIT 30.8 % (38.0-50.0); HEMOGLOBIN 10.9 G/DL (12.5-16.6); MCH 32.6 PG (29.0-34.0); MCHC 35.4 G/DL (30.0-36.0); MCV 92.2 FL (86-99); PLATELET COUNT 150 K/uL (156-360); RBC DIS.WIDTH-CV 17.9 % (11.8-14.6); RBC DIS.WIDTH-SD 59.3 % (39-53); RED BLOOD COUNT 3.34 M/uL (4.00-5.50); WHITE BLOOD COUNT 6.3 K/uL (4.1-10.2)
[2017-10-12 21:23] LABS: CHLORIDE 101 mEq/L (99-109); POTASSIUM 3.7 mEq/L (3.7-5.4); SODIUM 137 mEq/L (136-147)
[2017-10-12 21:25] LABS: GLUCOSE 134 mg/dL (70-99)
[2017-10-12 21:29] LABS: CREATININE 3.1 mg/dL (0.6-1.3); GFR ESTIMATE (CALCULATED) 21 mL/min/ (58.99-99999)
[2017-10-12 21:30] LABS: UREA NITROGEN (BUN) 56 mg/dL (9-23)
[2017-10-12 22:49] LABS: INTER. NORMALIZED RATIO 2.4
[2017-10-12 22:50] LABS: TROP-I INTERPRETATION NEGATIVE; TROPONIN-I 0.02 ng/mL (0.0-0.30)
[2017-10-13] VITALS (7 sets, daily range): BP systolic 150–176; BP diastolic 85–107
[2017-10-13 06:31] LABS: HEMATOCRIT 30.2 % (38.0-50.0); HEMOGLOBIN 10.4 G/DL (12.5-16.6); MCHC 34.4 G/DL (30.0-36.0); MCV 92.9 FL (86-99); PLATELET COUNT 131 K/uL (156-360); RBC DIS.WIDTH-CV 18.2 % (11.8-14.6); RBC DIS.WIDTH-SD 61.3 % (39-53); RED BLOOD COUNT 3.25 M/uL (4.00-5.50); WHITE BLOOD COUNT 6.6 K/uL (4.1-10.2)
[2017-10-13 06:37] LABS: INTER. NORMALIZED RATIO 2.8
[2017-10-13 08:53] LABS: ALBUMIN 3.5 G/DL (3.2-4.8); ALKALINE PHOSPHATASE 113 IU/L (3-129); ALT (GPT) 13 IU/L (3-49); AST (GOT) 16 IU/L (2-34); CHLORIDE 103 MEQ/L (99-109); CREATININE 2.9 MG/DL (0.6-1.3); GFR ESTIMATE (CALCULATED) 22 mL/min/ (58.99-99999); POTASSIUM 3.4 MEQ/L (3.7-5.4); SODIUM 138 MEQ/L (136-147); TOTAL BILIRUBIN 1.3 MG/DL (0.0-1.0); TOTAL PROTEIN 5.7 G/DL (6.4-8.3); UREA NITROGEN (BUN) 53 mg/dL (9-23)
[2017-10-13 08:54] LABS: GLUCOSE 82 mg/dL (70-99)
[2017-10-13] MEDS ORDERED: POTASSIUM CHLO10 ME4 PO (13:19)
[2017-10-13] MEDS ORDERED: VITAMIN D-32000 UNI2 PO (13:20)
[2017-10-13] MEDS ORDERED: LIDOCARE1 EACH TP (13:25)
[2017-10-13] MEDS ORDERED: DULERA 100 MCG/13 GM IH (13:26)
[2017-10-13] MEDS ORDERED: SPIRIVA RESPIMAT4 GM IH (13:26)
[2017-10-13] MEDS ORDERED: RANITIDINE HCL150 MG PO (13:34)
[2017-10-13] MEDS ORDERED: TRAMADOL HCL50 MG PO (13:38)
[2017-10-14 00:10] VITALS: BP 142/76
[2017-10-14 03:58] VITALS: BP 150/76
[2017-10-14 05:42] LABS: INTER. NORMALIZED RATIO 2.9
[2017-10-14 07:23] VITALS: BP 138/94
[2017-10-14 08:04] LABS: HEMATOCRIT 31.5 % (38.0-50.0); HEMOGLOBIN 10.7 G/DL (12.5-16.6); MCH 32.1 PG (29.0-34.0); MCV 94.6 FL (86-99); NRBC (%) 1.6 /100 WBC (0-0); PLATELET COUNT 137 K/uL (156-360); RBC DIS.WIDTH-CV 18.6 % (11.8-14.6); RBC DIS.WIDTH-SD 63.6 % (39-53); RED BLOOD COUNT 3.33 M/uL (4.00-5.50)
[2017-10-14 10:14] LABS: CHLORIDE 101 MEQ/L (99-109); GFR ESTIMATE (CALCULATED) 21 mL/min/ (58.99-99999); GLUCOSE 98 mg/dL (70-99); POTASSIUM 3.9 MEQ/L (3.7-5.4); SODIUM 140 MEQ/L (136-147); UREA NITROGEN (BUN) 56 mg/dL (9-23)
[2017-10-14 11:26] VITALS: BP 128/75
[2017-10-14 15:32] VITALS: BP 147/84
[2017-10-14 19:35] VITALS: BP 139/67
[2017-10-15 00:30] VITALS: BP 154/85
[2017-10-15 03:49] VITALS: BP 155/82
[2017-10-15 06:36] LABS: HEMATOCRIT 30.2 % (38.0-50.0); HEMOGLOBIN 10.3 G/DL (12.5-16.6); MCHC 34.1 G/DL (30.0-36.0); MCV 93.8 FL (86-99); PLATELET COUNT 111 K/uL (156-360); RBC DIS.WIDTH-CV 18.4 % (11.8-14.6); RBC DIS.WIDTH-SD 62.3 % (39-53); RED BLOOD COUNT 3.22 M/uL (4.00-5.50); WHITE BLOOD COUNT 5.6 K/uL (4.1-10.2)
[2017-10-15 07:01] LABS: CHLORIDE 100 MEQ/L (99-109); CREATININE 3.1 MG/DL (0.6-1.3); GFR ESTIMATE (CALCULATED) 21 mL/min/ (58.99-99999); GLUCOSE 88 mg/dL (70-99); POTASSIUM 3.5 MEQ/L (3.7-5.4); SODIUM 137 MEQ/L (136-147); UREA NITROGEN (BUN) 55 mg/dL (9-23)
[2017-10-15 07:34] VITALS: BP 153/80
[2017-10-15 08:46] LABS: INTER. NORMALIZED RATIO 2.5
[2017-10-15 11:30] VITALS: BP 128/67
[2017-10-15 16:12] VITALS: BP 124/72
[2017-10-15 19:52] VITALS: BP 112/58
[2017-10-16 00:02] VITALS: BP 117/57
[2017-10-16 03:51] VITALS: BP 137/77
[2017-10-16 06:51] LABS: INTER. NORMALIZED RATIO 2.3
[2017-10-16 07:26] VITALS: BP 138/73
[2017-10-16 08:58] LABS: HEMATOCRIT 29.5 % (38.0-50.0); HEMOGLOBIN 10.1 G/DL (12.5-16.6); MCHC 34.2 G/DL (30.0-36.0); MCV 93.4 FL (86-99); PLATELET COUNT 123 K/uL (156-360); RBC DIS.WIDTH-CV 18.3 % (11.8-14.6); RBC DIS.WIDTH-SD 61.6 % (39-53); RED BLOOD COUNT 3.16 M/uL (4.00-5.50); WHITE BLOOD COUNT 5.7 K/uL (4.1-10.2)
[2017-10-16 09:19] LABS: CHLORIDE 100 MEQ/L (99-109); CREATININE 3.5 MG/DL (0.6-1.3); GFR ESTIMATE (CALCULATED) 18 mL/min/ (58.99-99999); GLUCOSE 93 mg/dL (70-99); POTASSIUM 3.5 MEQ/L (3.7-5.4); SODIUM 135 MEQ/L (136-147); UREA NITROGEN (BUN) 62 mg/dL (9-23)
[2017-10-16] MEDS ORDERED: CARVEDILOL6.25 MG PO (10:43)
[2017-10-16] MEDS ORDERED: PANTOPRAZOLE SO40 MG PO (10:44)
== END 2017-10-16 13:17 | DRG 291 ==
LOC: EME → EDBD 20:10 → 5SOUTH 10-13 04:30 → EDOF 10-13 04:30 → 5SOUTH 10-13 05:46 → ENRESERV 10-13 20:29 → ENPENDDIS 10-16 12:25 → 5SOUTH 10-16 13:17
PROVIDERS: Emergency Medicine; Internal Medicine; Physician Assistant Medical
PROC: 0W993ZZ Drainage of Right Pleural Cavity, Percutaneous Approach (ICD-10-PCS; principal; 2017-10-15)
DX: I13.2 Hypertensive heart and chronic kidney disease with heart failure and with stage 5 chronic kidney disease, or end stage renal disease (principal); I50.33 Acute on chronic diastolic (congestive) heart failure; N18.6 End stage renal disease; J90 Pleural effusion, not elsewhere classified; R09.02 Hypoxemia; E87.1 Hypo-osmolality and hyponatremia; E87.6 Hypokalemia; Z91.15 Patient's noncompliance with renal dialysis; G47.33 Obstructive sleep apnea (adult) (pediatric); D63.8 Anemia in other chronic diseases classified elsewhere; J44.9 Chronic obstructive pulmonary disease, unspecified; I25.5 Ischemic cardiomyopathy; I25.10 Atherosclerotic heart disease of native coronary artery without angina pectoris; Z95.1 Presence of aortocoronary bypass graft; E78.5 Hyperlipidemia, unspecified; I35.0 Nonrheumatic aortic (valve) stenosis; I48.0 Paroxysmal atrial fibrillation; I48.2 Chronic atrial fibrillation; K21.9 Gastro-esophageal reflux disease without esophagitis; N40.0 Benign prostatic hyperplasia without lower urinary tract symptoms; S41.112A Laceration without foreign body of left upper arm, initial encounter; X58.XXXA Exposure to other specified factors, initial encounter; S42.302D Unspecified fracture of shaft of humerus, left arm, subsequent encounter for fracture with routine healing; Z66 Do not resuscitate; F03.90 Unspecified dementia, unspecified severity, without behavioral disturbance, psychotic disturbance, mood disturbance, and anxiety; H91.90 Unspecified hearing loss, unspecified ear; E66.9 Obesity, unspecified; I25.2 Old myocardial infarction; Z68.33 Body mass index [BMI] 33.0-33.9, adult; Z87.891 Personal history of nicotine dependence; Z79.01 Long term (current) use of anticoagulants
CPT/HCPCS: 71045; 76942; 80048; 80053; 82550; 83880; 84484; 85027; 85610; 85730; 86850; 86900; 86901; 93005; 94640; 94799; 99281; 99285; J2405